=== PATIENT | male | born 1960 | race African-American/Black ===

== ENCOUNTER 2018-01-25 05:45 | Day surgery (SDC) | payer BC ==
[2018-01-25] VITALS (10 sets, daily range): BP systolic 118–131; BP diastolic 75–88
[~2018-01-25] VITALS: Ht 177.8 cm; Wt 108.9 kg
[~2018-01-25 05:45] MED LIST: NKM
[2018-01-25] MEDS ORDERED: TAMSULOSIN HCL0.4 MG ORAL (06:29)
[2018-01-25] MEDS ORDERED: fentaNYL 100 mcg/2 mL IV ONE (07:03)
[2018-01-25] MEDS ORDERED: Propofol 200mg/20ml IV ONE (07:04)
[2018-01-25] MEDS ORDERED: Midazolam 2mg/2ml Inj ONE (07:04)
[2018-01-25] MEDS ORDERED: Ketorolac 30mg Inj ONE (07:04)
[2018-01-25] MEDS ORDERED: Lidocaine 1% MPF 10mg/ml 5ml ONE (07:04)
[2018-01-25] MEDS ORDERED: EPINEPHrine 1mg/1ml Amp ONE (07:13)
[2018-01-25] MEDS ORDERED: Bupivacaine w/Epi 0.25% 30ml Vial INJ ONE (07:13)
--- NOTE | 2018-01-25 07:17 | Pre-Procedure Note/Attestation ---
Pre-Procedure Note/Attestation Complete Prior to Procedure Planned Procedure: right Procedure Narrative: Right knee arthroscopy with partial menisectomy Indications for Procedure Pre-Operative Diagnosis: Right knee meniscus tear Attestation I attest that I discussed the nature of the procedure; its benefits; risks and complications; and alternatives (and the risks and benefits of such alternatives ), prior to the procedure, with the patient (or the patient's legal food service sales representatives). I attest that, if there was a reasonable possibility of needing a blood transfusion, the patient (or the patient's legal food service sales representatives) was given the [facility] standardized written summary, pursuant to the [place] Blood Safety Act ([place] Health and Safety Code # 1645, as amended). I attest that I re-evaluated the patient just prior to the surgery and that there has been no change in the patient's H&P, except as documented below: Joel Nettles MD Jan 25, 2018 07:17
[2018-01-25] MEDS ORDERED: NS Irrig 4000ml IRRIG ONE ×2 (07:24→07:30)
[2018-01-25] MEDS ORDERED: LR 1000ml ONE (07:24)
[2018-01-25] MEDS ORDERED: Tylenol #3 tab (300mg/30mg) ORAL PRN (07:30)
[2018-01-25] MEDS ORDERED: Norco 5mg/325mg tab ORAL PRN (07:30)
[2018-01-25] MEDS ORDERED: D5 1/2NS 1,000 ML IV SCH (07:30)
[2018-01-25] MEDS ORDERED: HYDROmorphone 1mg/ml Carpuject SUBQ PRN (07:30)
--- NOTE | 2018-01-25 07:34 | Anethesia Preoperative Eval ---
Anesthesia Pre-op PMH/ROS General Date of Evaluation: Jan 25, 2018 Time of Evaluation: 07:22 Anesthesiologist: Hermes ASA Score: ASA 2 Mallampati Score Class I : Soft palate, uvula, fauces, pillars visible Class II: Soft palate, uvula, fauces visible Class III: Soft palate, base of uvula visible Class IV: Only hard plate visible Mallampati Classification: Class II Surgeon: Tho Diagnosis: R knee pain Surgical Procedure: R knee scope Anesthesia History: none Allergies: Coded Allergies: No Known Allergies (Unverified , 01/25/18) Medications: see eMAR Patient NPO?: Yes Past Medical History Cardiovascular: Reports: HTN - borderline; Denies: CAD, [place], valve dz, arrhythmia, other Pulmonary: Reports: LETA; Denies: asthma, COPD, other Gastrointestinal/Genitourinary: Reports: GERD, other - BPH; Denies: CRI, ESRD Neurologic/Psychiatric: Denies: dementia, CVA, depression/anxiety, TIA, other Endocrine: Denies: DM, hypothyroidism, steroids, other HEENT: Denies: cataract (L), cataract (R), glaucoma, [place] (L), [place] (R), other Hematology/Immune: Denies: anemia, DVT, bleeding disorder, other Musculoskeletal/Integumentary: Denies: OA, RA, DJD, DDD, edema, other Other: obesity PMH Narrative: as above PSxH Narrative: L knee scope Anesthesia Pre-op Phys. Exam Physician Exam Last Vital Signs Date Time Temp Pulse Resp B/P (MAP) Pulse Ox O2 Delivery O2 Flow Rate FiO2 01/25/18 06:27 Room Air 01/25/18 06:16 97.0 59 18 131/82 97 Constitutional: NAD Neurologic: CN 2-12 intact Cardiovascular: RRR, no M/R/G Respiratory: CTA Gastrointestinal: other - obesity Airway Exam Mallampati Score: Class III MO: full Neck: short ROM: full Teeth: missing Dentures: no upper, no lower Anesthesia Pre-op A/P Studies Pre-op Studies: EKG - NSR Risk Assessment & Plan Assessment: ASA 2 Plan: GA with LMA Status Change Before Surgery: No Pre-Antibiotics Drug: Ancef 2gr. Given Within 1 Hr of Incision: Yes Time Given: 07:56 Viktor Mirza MD Jan 25, 2018 07:34
[2018-01-25] MEDS ORDERED: LR 1000ml 1,000 ML IVLG SCH (08:02)
[2018-01-25] MEDS ORDERED: Ketorolac 30mg Inj IV PRN (08:15)
[2018-01-25] MEDS ORDERED: Meperidine 50mg/ml Inj(FOR RIGORS ONLY) IV PRN (08:15)
[2018-01-25] MEDS ORDERED: DiphenhydrAMINE 50mg/ml Inj IVP PRN (08:15)
--- NOTE | 2018-01-25 08:35 | Immediate Post-Op Evaluation ---
Immediate Post-Op Evalulation Immediate Post-Op Evalulation Procedure: R knee arthroscopy meniscectomy Date of Evaluation: Jan 25, 2018 Time of Evaluation: 08:34 IV Fluids: 1000 Blood Products: none Estimated Blood Loss: min Urinary Output: none Blood Pressure Systolic: 126 Blood Pressure Diastolic: 86 Pulse Rate: 62 Respiratory Rate: 20 O2 Sat by Pulse Oximetry: 99 Temperature (Fahrenheit): 98.3 Pain Score (1-10): 1 Nausea: No Vomiting: No Complications none Patient Status: patent, none Hydration Status: adequate Viktor Mirza MD Jan 25, 2018 08:35
--- NOTE | 2018-01-25 09:07 | 48 Hour Post Anesthesia Eval ---
Post Anesthesia Evaluation Procedure: R knee arthroscopy meniscectomy Date of Evaluation: Jan 25, 2018 Time of Evaluation: 09:06 Blood Pressure Systolic: 116 0: 74 Pulse Rate: 68 Respiratory Rate: 20 Temperature (Fahrenheit): 98.3 O2 Sat by Pulse Oximetry: 98 Airway: patent Nausea: No Vomiting: No Pain Intensity: 2 Hydration Status: adequate Cardiopulmonary Status: stable Mental Status/LOC: patient returned to baseline Follow-up Care/Observations: n/a Post-Anesthesia Complications: none Follow-up care needed: ready to discharge Viktor Mirza MD Jan 25, 2018 09:07
--- NOTE | 2018-02-02 | Operative Note - Dictated ---
DATE OF OPERATION: 01/25/2018 SURGEON: Joel Nettles M.D. HEMP FIBER TAKER OFF: None. ANESTHESIA: General plus local. COMPLICATIONS: None. ANTIBIOTICS: Ancef. PREOPERATIVE DIAGNOSES: Right knee: 1. Trochlear arthrosis. 2. Medial meniscus tear. 3. Suprapatellar plica. POSTOPERATIVE DIAGNOSES: Right knee: 1. Trochlear arthrosis. 2. Medial meniscus tear. 3. Suprapatellar plica. PROCEDURE PERFORMED: Right knee arthroscopy with: 1. Trochlear chondroplasty. 2. Partial medial meniscectomy. 3. Plica resection. BACKGROUND: The patient has had longstanding right knee pain refractory to nonoperative management. All risks, benefits, and alternatives to surgical intervention were discussed in great detail. Risks included, but were not limited to, bleeding, infection, neurovascular injury, need for additional surgical intervention, failure of pain relief, arthrofibrosis, complications of anesthesia, blood clots, stroke, heart attack, and potentially . He understood these risks, amongst others, and consent was signed. PROCEDURE IN DETAIL: The patient was brought into the operating room and placed supine on the operating room table. The right knee was correctly verified for surgical site and prepped and draped in standard sterile fashion. Examination under anesthesia revealed symmetric range of motion with the contralateral side and no effusion. There was no instability. Anterolateral and anteromedial portals were marked and injected with 20 mL of 0.25% Marcaine with epinephrine. A diagnostic arthroscopy was then undertaken. It revealed the followin. Plica medial suprapatellar pouch. 2. 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 3. Normal medial gutter. 4. Normal lateral gutter. 5. Normal lateral meniscus. 6. Normal lateral compartment. 7. Partially torn ACL. 8. Large tear medial meniscus, posterior and middle horn. 9. Grade 2 diffuse mild arthritic change medial femoral condyle. The suprapatellar medial plica was resected using a 4.0 mm shaver. Attention was then turned to the trochlea where a light chondroplasty was performed to make sure there was no loose edges to create a loose body. In the medial compartment, the large medial complex posterior and middle horn meniscus tear was resected using an up biter, left biter, right biter, and contoured with a 3.5 mm shaver. All fluid and debris were evacuated from the knee. An 8 mL Duramorph were injected. The wounds were copiously irrigated and reapproximated using 4-0 Monocryl in subcuticular fashion. Steri-Strips were used over Mastisol. Dry sterile dressing was applied. A compressive stocking was fitted. He tolerated the procedure well. I attest I performed the entire operation. He was then transferred to recovery in good condition. Joel Nettles M.D. DR: LAWANDA JOB#: [id number] CC:
== END 2018-01-25 10:05 | disposition home or self-care (01) ==
LOC: SUR 05:45
DX: M23.203 Derangement of unspecified medial meniscus due to old tear or injury, right knee (principal); M17.11 Unilateral primary osteoarthritis, right knee; M67.51 Plica syndrome, right knee; G47.33 Obstructive sleep apnea (adult) (pediatric); N40.1 Benign prostatic hyperplasia with lower urinary tract symptoms; R35.0 Frequency of micturition; M54.12 Radiculopathy, cervical region; N52.9 Male erectile dysfunction, unspecified; E78.5 Hyperlipidemia, unspecified; I10 Essential (primary) hypertension; R73.03 Prediabetes; E78.00 Pure hypercholesterolemia, unspecified; E66.9 Obesity, unspecified; Z68.30 Body mass index [BMI] 30.0-30.9, adult; Z87.891 Personal history of nicotine dependence
CPT/HCPCS: 29881; J0171; J0690; J1885; J2250; J2704; J3010; 94003; 94150